=== PATIENT | male | born 1940 | race Caucasian/White ===

== ENCOUNTER 2016-10-29 20:54 | Emergency (ER) | payer MEDICARE ==
[~2016-10-29] VITALS: Ht 165.1 cm; Wt 81.8 kg
[2016-10-29 20:57] VITALS: BP 151/112; TEMP 97.5
[2016-10-29 22:20] VITALS: PULSE 97
== END 2016-10-29 22:21 | disposition home or self-care (01) ==
LOC: COL.ER 20:54
DX: J44.9 Chronic obstructive pulmonary disease, unspecified (principal); J45.909 Unspecified asthma, uncomplicated; Z60.8 Other problems related to social environment